=== PATIENT | male | born 1980 | race Caucasian/White ===

== ENCOUNTER 2019-10-01 11:51 | Emergency (ER) | payer OTHER, SELFPAY ==
[2019-10-01 11:52] VITALS: BP 112/63; PULSE 77; RESP 16; TEMP 36.8; O2SAT 100; BMI 22.1
[2019-10-01] MEDS: 0.9% Normal Saline 1,000 ML 999 ML IV (12:21)
[2019-10-01 12:44] LABS: Absolute Lymphocyte Count 1.67 X10^3/uL (0.83-4.51); Absolute Neutrophil Count 4.7 X10^3/uL (2.0-7.7); Basophil# 0.03 X10^3/uL; Basophil% 0.4 % (0-1); Eosinophil# 0.18 X10^3/uL; Eosinophils% 2.4 % (0-5); Hematocrit 34.9 % (40-54); Hemoglobin 10.5 g/dL (13.0-16.5); Lymphocyte # 1.67 X10^3/ul (4.0); Lymphocyte % 21.9 % (19-41); Mean Corp Hgb Conc 30.1 g/dL (32-36); Mean Corpuscular Hgb 23.1 pg (27.0-32.0); Mean Corpuscular Volume 76.9 fL (80-94); Mean Platelet Vol. 9.5 fl (6.2-12.0); Monocyte% 13.1 % (0-10); NRBC Flagged by Analyzer 0 % (0-5); Neutrophil # 4.71 X10^3/uL (2.7-7.7); Neutrophil % 61.8 % (47-70); Platelet Count 392 K/mm3 (150-450); RBC Distribution Width CV 15.3 % (11.6-14.6); RBC Distribution Width SD 42.5 fl (35.1-43.9); Red Blood Count 4.54 M/mm3 (4.6-6.2); White Blood Count 7.6 K/mm3 (4.4-11.0)
[2019-10-01 13:09] LABS: Anion Gap 5 (5-15); BUN 18 mg/dL (7-18); BUN/Creat Ratio 14.3 RATIO (10-20); Calcium,Total 8.4 mg/dL (8.5-10.1); Chloride 107 mmol/L (98-107); Creatinine, Serum 1.26 mg/dL (0.70-1.30); EST Glomerular Filtration Rate 67 mL/min (>60); Est Glom Filt Rate - Afr Amer 81 mL/min (>60); Estimated Creatinine Clearance 74.25 ml/min; Glucose 86 mg/dL (74-106); Potassium 3.8 mmol/L (3.5-5.1); Sodium Level 141 mmol/L (136-145); Thyroid Stim Hormone (TSH) 1.45 uIU/mL (0.358-3.74)
--- NOTE | 2019-10-01 13:21 | ED.VISSUMM ---
- ER Visit Summary Date of Service: 10/01/19 Chief Complaint: Weakness History of Present Illness: The patient is a 39 M who presents feeling weak. Started last night and got worse today. He feels lethargic. He denies any chest pain, shortness of breath, palpitations, fevers or pain. He does have a history of Crohn's disease and has chronic diarrhea. He states that he is not on any medications currently for his Crohn's. He did not get a flu shot this year. He took no medications for this at home. Physical Examination: Vital signs reviewed. HEENT exam unremarkable. Heart is regular rate and rhythm without murmurs. Lungs are clear to auscultation. Abdomen is soft and nontender. Extremities reveal no edema. Skin exam normal. Neurologic exam normal. Test Results: Labs are normal except for hemoglobin of 10.5 Emergency Department Course and Treatment: Patient was given normal saline. I see no reason as to why he is feeling so weak and lethargic. He is not lethargic on exam. Patient will increase hydration at home. He will need to call his GI doctor about getting back on his medications for his Crohn's. Treatment Plan: [] Disposition: Discharge Impression: Malaise This note was generated with [employer] dictation software. It may contain incorrect words, spelling, and punctuation that were not noted in review of the chart prior to signing ED Disposition - Plan for ED Patient: Referrals: Care Physician,No Primary [Primary Care Provider] -
--- NOTE | 2019-10-01 13:22 | ED.DEP ---
ED Disposition - Plan for ED Patient: Disposition: Home or Assisted Living Instructions: WEAKNESS, Unk Cause Referrals: Care Physician,No Primary [Primary Care Provider] -
== END 2019-10-01 13:42 | disposition home or self-care (01) ==
PROVIDERS: Emergency Provider Emergency Medicine
DX: R53.81 Other malaise (principal)
CPT/HCPCS: 80048; 84443; 85025; 87804; 96360; 99284; J7030; A4216